=== PATIENT | female | born 1980 ===

== ENCOUNTER → 2020-04-14 | Outpatient (CLI) | payer SELFPAY ==
[~2020-04-14] MED LIST: COVID-19 VACCINE (PFIZER)/PF 30 MCG/0.3 ML VIAL IM ONE; EPINEPHRINE INJ/PF 1 MG/1 ML AMPULE IM PRN
== END ==
LOC: EMPHEALTH 07:01
PROVIDERS: ATTEND Internal Medicine
DX: Z23 Encounter for immunization (principal)
CPT/HCPCS: 91300

== ENCOUNTER → 2020-05-05 | Outpatient (CLI) | payer SELFPAY ==
--- OUTSIDE RECORDS SUMMARY | 2020-05-05 06:47 | XMS REPORT ---
:1980 Author Organization [facility] Address [facility] [address] [place] [address] Care Team Providers Name Role Phone ELMA MCCALLUM Primary Care Physician Unavailable Hilary Attending Clinician Unavailable ADRI MCCALLUM Attending Clinician Unavailable MARIETTA MAYO Attending Clinician Unavailable MASOOD DE LA FUENTE Attending Clinician Unavailable Anika Attending Clinician Unavailable Tomasa Rahman Attending Clinician Unavailable Tushar Camargo Attending Clinician Unavailable Osvaldo Matthews Attending Clinician Unavailable Cary Segovia (ANP) Attending Clinician Unavailable MARIETTA MAYO Admitting Clinician Unavailable Tomasa Rahman Admitting Clinician Unavailable Allergies, Adverse Reactions, Alerts Allergy Allergy Status Severity Reaction(s) Onset Inactive Treating C omments Name Type Date Date Clinician CIPROFLOXAC Drug Active Unknown 2019-04 IN HCL allergy 05-22 00:00: 00 CIPROFLOXAC Drug Active Unknown 2019-04 IN allergy 05-22 00:00: 00 MORPHINE Drug Active Unknown 2019-04 allergy 05-22 00:00: 00 Morphine Propensity Active to adverse -22 reactions 00:00: 00 Ciprofloxac Propensity Active Low Rash in to adverse -22 reactions 00:00: 00 Nsaids Propensity Inactive Low Nausea And (Non-Steroi to adverse Vomiting - patrick reactions 00:00: Anti-Inflam 00 matory Drug) Nsaids Propensity Active Low Nausea And (Non-Steroi to adverse Vomiting - ptarick reactions 00:00: Anti-Inflam 00 matory Drug) ciprofloxac Allergy Active Vomiting in ciprofloxac Allergy Active Vomiting in HCl morphine Allergy Active Vomiting NSAIDS Allergy Active No Known (Non-Steroi Reaction patrick Anti-Inflam ma Medications Ordered Filled Start Stop Current Ordering Indication Dosage Frequency Signature Comments Components Medication Medication Date Date Medication? Clinician (SIG) Name Name amoxicillin 2018-04 Yes Take 1 Take 1 (AMOXIL) 2-30 tablet by tablet by 875 MG 00:00: mouth mouth tablet 00 every 12 every 12 hours hours labetalol 2018-04 Yes Take 1 Take 1 (NORMODYNE) 2-02 tablet by tabl et by 100 MG 00:00: mouth mouth tablet 00 twice twice daily daily omeprazole 2018-04 Yes Take 1 Take 1 (PRILOSEC) 2-02 capsule by caps ule 20 MG 00:00: mouth once by mouth capsule 00 daily once daily ondansetron Yes Place [address] 1 (ZOFRAN-ODT 9-10 tablet (8 tabl et (8 ) 8 MG 00:00: mg) on the mg) on disintegrat 00 tongue and the ing tablet allow to tongue dissolve 2 and allow times per to day as dissolve needed for 2 times nausea per day as needed for nausea SENNOSIDES Yes 3{tbl} Take 3 Take 3 (SENNA-C 1-28 tablets by tablet s ORAL) 11:46: mouth Two by mouth 15 (2) times Two (2) a day. times a day. multivitami Yes 1{tbl} Take 1 Take 1 n 1-28 tablet by tablet by (TAB-A-LARS 00:00: mouth mouth /THERAGRAN) 00 daily. daily. per tablet omega-3 2019- No 1{capsu Take 1 Take 1 fatty -28 -27 le} capsule by capsule acids-fish 00:00: 23:59 mouth by mouth oil (FISH 00 :00 daily. daily. OIL) 360-1,200 mg cap ondansetron 2020- No 4mg TAKE 1 TAKE 1 (ZOFRAN) 4 05-08 TABLET BY TABLE T BY MG tablet 00:00: 23:59 MOUTH MOUTH 00 :00 EVERY 6 EVERY 6 HOURS HOURS NEEDED FOR NEEDED NAUSEA FOR NAUSEA dicyclomine 2020- No 20mg TAKE 1 TAKE 1 (BENTYL) 20 05-08 TABLET BY TABL ET BY mg tablet 00:00: 23:59 MOUTH MOUTH 00 :00 EVERY 6 EVERY 6 HOURS HOURS NEEDED FOR NEEDED SPASM FOR SPASM phentermine Yes 15mg Take 15 mg Ta ke 15 15 MG 1-23 by mouth mg by capsule 12:08: every mouth 08 morning. every morning. vilazodone Yes 20mg Take 20 mg Neeraj e 20 (VIIBRYD) 1-22 by mouth mg by 20 mg 20:55: daily. mouth tablet 35 Take with daily. food Take with food ondansetron 2019- No TAKE 1 TAKE 1 (ZOFRAN-ODT 05-06 TABLET (4 TABL ET (4 ) 4 MG 00:00: 23:59 MG TOTAL) MG TOTAL ) disintegrat 00 :00 BY MOUTH BY MO UTH ing tablet EVERY EVERY EIGHT (8) EIGHT (8) HOURS HOURS NEEDED FOR NEEDED NAUSEA FOR FOR UP TO 7 NAUSEA DAYS FOR UP TO 7 DAYS ondansetron 2019- No 4MG Take 1 Take 1 (ZOFRAN-ODT 05-06 tablet (4 tabl et (4 ) 4 MG 00:00: 23:59 mg total) mg total ) disintegrat 00 :00 by mouth by mo uth ing tablet every every eight (8) eight (8) hours as hours as needed for needed nausea. for for up to nausea. 7 days for up to 7 days vilazodone 2017-04- No TAKE 1 TAKE 1 (VIIBRYD) 2-12 12-12 TABLET (20 TABLE T 20 mg 00:00: 23:59 MG) BY (20 MG) tablet 00 :00 MOUTH BY MOUTH DAILY WITH DAILY FOOD WITH FOOD labetalol 2017-04 No 100mg TAKE 1 TAKE 1 (NORMODYNE) 1-28 TABLET BY TABL ET BY 100 MG 00:00: MOUTH 2 MOUTH 2 tablet 00 TIMES A TIMES A DAY DAY labetalol 2019- No TAKE 1 TAKE 1 (NORMODYNE) 8-17 - TABLET BY TABL ET BY 100 MG 00:00: 00:00 MOUTH 2 MOUTH 2 tablet 00 :00 TIMES A TIMES A DAY DAY labetalol No 100mg TAKE 1 TAKE 1 (NORMODYNE) 8-16 TABLET BY TABL ET BY 100 MG 00:00: MOUTH 2 MOUTH 2 tablet 00 TIMES A TIMES A DAY DAY labetalol 2016-04 Yes 100mg Take 1 Take 1 (NORMODYNE) 1-15 tablet tablet 100 MG 00:00: (100 mg (100 mg tablet 00 total) by total) by mouth Two mouth Two (2) times (2) times a day. a day. medroxyPROG 2016-04 Yes 1{tbl} Take 1 Take 1 ESTERone 1-10 tablet by tablet by (PROVERA) 00:00: mouth mouth 10 MG 00 daily. daily. tablet ferrous Yes 1{tbl} Take 1 Take 1 sulfate 325 9-22 tablet by tabl et by mg (65 mg 12:14: mouth mouth iron) CpER 26 daily. daily. b complex Yes 1{tbl} Take 1 Take 1 vitamins 9-22 tablet by tablet by tablet 12:14: mouth mouth 26 daily. daily. SENNOSIDES No 3{tbl} Take 3 Take 3 (SENNA-C 9-22 tablets by tablet s ORAL) 12:14: mouth Two by mouth 26 (2) times Two (2) a day. times a day. omega-3 2019- No 1{capsu Take 1 Take 1 fatty 01-04 le} capsule by capsule acids-fish 12:14: 00:00 mouth by mouth oil (FISH 26 :00 daily. daily. OIL) 360-1,200 mg cap multivitami 2019- No 1{tbl} Take 1 Take 1 n 01-04 tablet by tablet by (TAB-A-LARS 12:14: 00:00 mouth mouth /THERAGRAN) 26 :00 daily. daily. per tablet Acetaminoph Yes General 650MG EVERY FOUR en -26 Acute Care HOURS 00:00: Hospital NEEDED PRN 00 For Pain. Oxycodone 2016- Yes General 1TAB EVERY FOUR Hcl/Acetami 4-26 Acute Care HOURS nophen 00:00: Hospital NEEDED PRN 00 For PAIN. Ferrous 2016- Yes General 1TAB EVERY DAY Sulfate 4-24 Acute Care 00:00: Hospital 00 Labetalol 2016- Yes General 100MG TWO TIMES Hcl 4-05 Acute Care DAILY 00:00: Hospital 00 Fa/Mv,Ca,Ir 2017- Yes General 2TAB EVERY on,Min/Lyco 4-05 Acute Care NIGHT AT [facility] 00:00: Hospital BEDTIME 2014-04 2017- No General 2500MCG EVERY DAY 0-12 04-05 Acute Care 00:00: 11:31 Hospital 00 :00 Hydrocodone 2014-04- No General 1TAB EVERY FOUR Bit/Acetami 07-18 Acute Care HOURS nophen 00:00: 11:30 Hospital NEEDED PRN 00 :00 For Pain Oxycodone 2014- No General 1TAB EVERY SIX Hcl/Acetami 10-22 Acute Care HOURS nophen 00:00: 11:10 Hospital NEEDED PRN 00 :00 For PAIN. Ferrous 2014- No General 324MG EVERY DAY Sulfate 10-22 Acute Care 00:00: 11:10 Hospital 00 :00 Folic Acid 2014- No General .4MG EVERY DAY 10-20 Acute Care 00:00: 11:09 Hospital 00 :00 Ranitidine 2014- No General 150MG EVERY DAY Hcl 10-20 Acute Care 00:00: 11:10 Hospital 00 :00 Calcium Yes General 1TAB TWO TIMES Carbonate/V 04-23 Acute Care DAILY itamin D3 00:00: Hospital 00 Sennosides Yes General 3TAB TWO TIMES 04-23 Acute Care DAILY 00:00: Hospital 00 Cyanocobala Yes General 2500MCG MOWEFR min 04-23 Acute Care 00:00: Hospital 00 Fish Oil 2017- No General 1200MG EVERY DAY 04-23 Acute Care 00:00: 11:30 Hospital 00 :00 Labetalol 2016- No General 100MG TWO TIMES Hcl 04-23 Acute Care DAILY 00:00: 14:54 Hospital 00 :00 Multivitami 2016- No General 2TAB EVERY ns 04-23 Acute Care NIGHT AT 00:00: 14:54 Hospital BEDTIME 00 :00 Problems Condition Condition Condition Status Onset Resolution Last Treatin g Comments Name Details Category Date Date Treatment Clinician Date Calculus of Calculus of Condition Active 2018-05-07 Overview: gallbladder gallbladder 05-07 10:14:40 Added with acute with acute 00:00: au tomatic cholecystit cholecystit 00 ally from is without is without re quest obstruction obstruction for surgery [id number] Well woman Well woman Condition Active 2017-1 2017-02-27 Last exam (no exam (no 1-15 15:14:51 Asses smen gynecologic gynecologic 00:00: t & Plan: al exam) al exam) 00 Annual wellness exam bernarda n patient is currentl y preventa t [facility] needs to receive flu vaccine. Patient' s to retur n to clini c in one year's time for complete physical exam lab s to be done a week prior to visit. Essential Essential Condition Active 2016-2017-01-16 Last (primary) (primary) 0-04 15:21:21 Ass essmen hypertensio hypertensio 00:00: t & Plan: n n 00 Hyperten s ion well controll e d patien t is to continue labetalo l as prescrib e d salt restrict i on and exercise lose weight Finding Active delivery delivery delivered delivered S/P S/P Finding Active Procedures Procedure Date / Time Performed Performing Clinician [facility] Add 2020-03-21 15:30:00 Supplies PREV VISIT EST AGE 40-64 2020-03-21 15:30:00 COMPREHENSIVE METABOLIC PANEL 2019-04-13 15:20:00 Tammi Mccallum Adri LIPID PANEL 2019-04-13 15:20:00 Elma Mccallum Adri VITAMIN B12 2019-04-13 15:20:00 Elma Mccallum Adri TSH 2019-04-13 15:20:00 Elma Mccallum Adri CBC 2019-04-13 15:20:00 Elma Mccallum Adri MAMMO DIGITAL SCREENING W ROMMEL 2019-03-23 17:39:23 Elma Mccallum Adri BILATERAL W CAD AEROBIC CULTURE 2018-05-12 08:45:00 Hilary Mayo ECG 12-LEAD 2018-05-12 06:38:46 Hilary Mayo , URINE 2018-05-12 06:18:00 Hilary Mayo COMPREHENSIVE METABOLIC PANEL 2018-05-06 20:45:00 Ana Maria De La Fuente HCG, SERUM, QUALITATIVE 2018-05-06 20:45:00 Ana Maria De La Fuente CBC W/ AUTO DIFF 2018-05-06 20:45:00 Ana Maria De La Fuente URINALYSIS 2018-05-06 20:36:00 Ana Maria De La Fuente COMPREHENSIVE METABOLIC PANEL 2018-03-17 06:47:00 Provider, Exte rnal Ordering LIPID PANEL 2018-03-17 06:47:00 Provider, External Ordering VITAMIN B12 2018-03-17 06:47:00 Provider, External Ordering T4, FREE 2018-03-17 06:47:00 Provider, External Ordering TSH 2018-03-17 06:47:00 Provider, External Ordering CBC 2018-03-17 06:47:00 Provider, External Ordering COMPREHENSIVE METABOLIC PANEL 2017-03-01 07:17:00 Cuddapah, Deep ak LIPID PANEL 2017-03-01 07:17:00 Cuddapah, Janusz IRON 2017-03-01 07:17:00 Cuddapah, Janusz TSH 2017-03-01 07:17:00 Cuddapah, Janusz CBC W/ DIFFERENTIAL 2017-03-01 07:17:00 Cuddapah, Janusz URINALYSIS 2017-03-01 07:17:00 Cuddapah, Janusz VITAMIN D 25 HYDROXY 2017-03-01 07:17:00 Cuddapah, Janusz CBC 2016-08-07 05:17:00 Jeremy Rahman CBC 2016-08-06 05:49:00 Jeremy Rahman RPR 2016-08-06 05:49:00 Jeremy Rahman URINALYSIS 2016-07-18 11:22:00 Jeremy Rahman URINE MICROSCOPIC 2016-07-18 11:22:00 Jeremy Rahman HEMOGLOBIN A1C 2016-05-24 15:25:00 Milton Matthews HEPATITIS B SURFACE ANTIGEN 2016-01-04 07:36:00 Rm Segoviao RPR 2016-01-04 07:36:00 Mary Segovia RUBELLA ANTIBODY, IGG 2016-01-04 07:36:00 Mary Segoviao HIV ANTIGEN/ANTIBODY COMBO 2016-01-04 07:36:00 Pinky Segovia Formo COMPREHENSIVE METABOLIC PANEL 2015-12-30 07:30:00 Cuddapah, Deep ak LIPID PANEL 2015-12-30 07:30:00 Cuddapah, Janusz VITAMIN B12 2015-12-30 07:30:00 Cuddapah, Janusz FERRITIN 2015-12-30 07:30:00 Cuddapah, Janusz FOLATE 2015-12-30 07:30:00 Cuddapah, Janusz CBC W/ DIFFERENTIAL 2015-12-30 07:30:00 Cuddapah, Janusz URINALYSIS 2015-12-30 07:30:00 Cuddapah, Janusz VITAMIN D 25 HYDROXY 2015-12-30 07:30:00 Cuddapah, Janusz THYROID FUNCTION CASCADE 2015-12-30 07:30:00 Cuddapah, Janusz URINE MICROSCOPIC 2015-12-30 07:30:00 Cuddapah, Janusz INFLUENZA A AND B ANTIGEN 2015-03-24 10:50:00 Aleyda Fu COMPREHENSIVE METABOLIC PANEL 2014-11-24 09:37:00 Cuddapah, Deep ak LIPID PANEL 2014-11-24 09:37:00 Cuddapah, Janusz VITAMIN B12 2014-11-24 09:37:00 Cuddapah, Janusz FERRITIN 2014-11-24 09:37:00 Cuddapah, Janusz TSH 2014-11-24 09:37:00 Cuddapah, Janusz CBC W/ DIFFERENTIAL 2014-11-24 09:37:00 Cuddapah, Janusz URINALYSIS 2014-11-24 09:37:00 Cuddapah, Janusz VITAMIN D 25 HYDROXY 2014-11-24 09:37:00 Cuddapah, Janusz URINE MICROSCOPIC 2014-11-24 09:37:00 Cuddapah, Janusz CBC 2014-10-21 04:23:00 Moustapha Camargo MATURATION TIME 2014-10-21 04:23:00 Moustapha Camargo Results Test Description Test Time Test Comments Text Results Atomic Results Result Comments #[id number] 2019-04-13 10:20:00 Test Item Value Reference Range Comments WBC (test code = WBC) 8.3 10*9/L 4.5- 13.0 10*9/L RBC (test code = RBC) 4.24 10*12/L 3.00- 5.20 10*12/L HGB (test code = HGB) 12.8 g/dL 11.5- 15.3 g/dL HCT (test code = HCT) 36.6 % 34.0- 46.0 % MCV (test code = MCV) 86.4 fL 78.0- 100.0 fL MCH (test code = MCH) 30.1 pg 25.0- 35.0 pg MCHC (test code = MCHC) 34.9 g/dL 31.0- 36.0 g/dL RDW (test code = RDW) 12.4 % 11.0- 15.0 % MPV (test code = MPV) 8.2 fL 6.0- 9.5 fL Platelet (test code = Platelet) 217 10*9/L 150- 450 10*9/L #[id number] 10:20:00 Test Item Value Reference Range Comments Sodium (test code = Sodium) 140 mmol/L 136- 145 mmol/L Potassium (test code = Potassium) 3.9 mmol/L 3.5- 5.1 mmol/ L Chloride (test code = Chloride) 105 mmol/L 98- 107 mmol/L CO2 (test code = CO2) 28.0 mmol/L 20.0- 31.0 mmol/L Anion Gap (test code = Anion Gap) 7 mmol/L 5- 15 mmol/L BUN (test code = BUN) 11 mg/dL 10- 23 mg/dL Creatinine (test code = Creatinine) 0.49 mg/dL 0.50- 0.80 m g/dL BUN/Creatinine Ratio (test code = 22 15-24 BUN/Creatinine Ratio) EGFR CKD-EPI Non-, Female >90 >=60 m L/min/1.73m2 (test code = EGFR CKD-EPI Non-, Female) EGFR CKD-EPI , Female (test >90 >=60 mL/min/1.73m2 code = EGFR CKD-EPI , Female) Glucose (test code = Glucose) 101 mg/dL 70- 99 mg/dL Calcium (test code = Calcium) 9.1 mg/dL 8.3- 10.6 mg/dL Albumin (test code = Albumin) 4.2 g/dL 3.4- 5.0 g/dL Total Protein (test code = Total Protein) 6.8 g/dL 6.1- 8 .0 g/dL Total Bilirubin (test code = Total Bilirubin) 0.5 mg/dL 0. 3- 1.2 mg/dL AST (test code = AST) 17 U/L 13- 40 U/L ALT (test code = ALT) 22 U/L 7- 40 U/L Alkaline Phosphatase (test code = Alkaline 67 U/L 46- 1 16 U/L Phosphatase) Globulin, Total (test code = Globulin, Total) 2.6 g/dL 2. 3- 3.5 g/dL Osmolality Calculated (test code = Osmolality 279 mOsm/kg 26 6- 308 mOsm/kg Calculated) Albumin/Globulin Ratio (test code = 1.6 1.1-1.8 Albumin/Globulin Ratio) #[id number] 10:20:00 Test Item Value Reference Range Comments Triglycerides (test code = Triglycerides) 161 mg/dL 35- 16 0 mg/dL Cholesterol (test code = Cholesterol) 187 mg/dL 140- 200 m g/dL HDL (test code = HDL) 47 mg/dL 40- 95 mg/dL VLDL Cholesterol Alissa (test code = VLDL 32.2 mg/dL 5- 40 mg/ dL Cholesterol Alissa) Chol/HDL Ratio (test code = Chol/HDL Ratio) 4.0 Non-HDL Cholesterol (test code = Non-HDL 140 mg/dL Cholesterol) FASTING (test code = FASTING) Unknown LDL Direct (test code = LDL Direct) 126.0 mg/dL 0.0- 129.0 m g/dL #[id number] 10:20:00 Test Item Value Reference Range Comments TSH (test code = TSH) 0.835 uIU/mL 0.550- 4.780 uIU/mL #[id number] 10:20:00 Test Item Value Reference Range Comments Vitamin B-12 (test code = Vitamin B-12) 1790 pg/ml 180- 914 pg/ml #[id number] 14:28:42Mammo Digital Screening W Rommel Bilateral W CAD (03/23/2019 12:39 PM EST)SpecimenImpressionsPerformedAtNo mammographic evidence of malignancy. Annual screening mammography is recommended unless clinically warranted sooner. Final Assessment/Recommendations:1. BI-RADS Category: 2-[id number] : Benign. Routine Mammography Screening. 2. Recommendation Laterality: Bilateral Dictated on: 03/23/2019 2:28 PM ESTDictated by: Kwabena Lewis MD Approved and Electronically Signed by: Kwabena Lewis MDApproved on: 03/23/2019 2:35 PM EST [facility] RADNarrativePerformed AtPROCEDURE: BILATERAL DIGITAL SCREENING MAMMOGRAM WITH 3D TOMOSYNTHESIS WITH CAD COMPARISON: None available. Baseline study. CLINICAL INDICATION: Routine screening mammogram. TECHNIQUE: Bilateral 2D Digital Mammographic and 3D Digital Tomosynthesis views were obtained in the implant displaced CC and MLO projections. Additional C-view synthesized 2-D images were generated. Additional craniocaudal and MLO projections of the rajiv asts were obtained. BREAST DENSITY: c - The breast parenchyma is heterogeneously dense, which may obscure small masses. FINDINGS: There is no suspicious mass, suspicious microcalcification, or focus of architectural distortion in either breast. Bilateral submuscular breast implants are present which limit sensitivity of mammography. Bilateral axillary benign-appearing calcifications are noted. Images from this examination were processed with the [employer] ImageCheSighterer Computer Aided Detection system toaid in lesion detection. [facility] RADProcedure NoteInterface, Rad Results In - 03/23/2019 2:39 PM ESTPROCEDURE: BILATERAL DIGITAL SCREENING MAMMOGRAM WITH 3D TOMOSYNTHESIS WITH CAD COMPARISON: None available. Baseline study. CLINICAL INDICATION: Routine screening mammogram. TECHNIQUE: Bilateral 2D Digital Mammographic and 3D Digital Tomosynthesis views were obtained in the implant displaced CC and MLO projections. Additional C-view synthesized 2-D images were generated. Additional craniocaudal and MLO pro jections of the breasts were obtained. BREAST DENSITY: c - The breast parenchyma is heterogeneously dense, which may obscure small masses. FINDINGS: There is no suspicious mass, suspicious microcalcification, or focus of architectural distortion in either breast. Bilateral submuscular breast implants are present which limit sensitivity of mammography. Bilateral axillary benign-appearing calcifications are noted. Images from this examination were processed with the Micropelt ImageMoser Baer Solarer Computer Aided Detection system to aid in lesion detection. IMPRESSION: No mammographic evidence of malignancy. Annual screening mammography is recommended unless clinically warranted sooner. Final Assessment/Recommendations: 1. BI-RADS Category: 2-[id number] : Benign. Routine Mammography Screening. 2. Recommendation Laterality: Bilateral Dictated on: 03/23/2019 2:28 PM EST Dictated by: Kwabena Lewis MD Approved and Electronically Signed by: Kwabena Lewis MD Approved on: 03/23/2019 2:35 PM JUAN ANTONIO [facility] HealthPerforming OrganizationAddressCity/State/ZipcodePhone NumberAR[facility] RAD[facility] SCE[address], [place] [address]VAD 12 [id number] 06:38:46ECG 12 Lead (05/12/2018 6:38 AM) Performing Organization Address City/State/Zipcode Phone Number [facility] [address] [facility]. [place], [place] [address] Qualitative, Urine (Pre-op)2018-05-12 06:18:00 Test Item Value Reference Range Comments Test, Urine (test code = Test, Negative Negative Urine) Comprehensive Metabolic [id number] 20:45:00 Test Item Value Reference Range Comments Sodium (test code = Sodium) 142 mmol/L 135- 153 mmol/L Potassium (test code = Potassium) 3.9 mmol/L 3.5- 5.3 mmol/ L Chloride (test code = Chloride) 104 mmol/L 96- 112 mmol/L CO2 (test code = CO2) 28.0 mmol/L 23.0- 33.0 mmol/L BUN (test code = BUN) 14 mg/dL 7- 22 mg/dL Creatinine (test code = Creatinine) 0.70 mg/dL 0.50- 1.20 m g/dL BUN/Creatinine Ratio (test code = 20 15-24 BUN/Creatinine Ratio) EGFR MDRD Non Af Amer (test code = EGFR 93 mL/min/1.73m2 >=60 mL /min/1.73m2 MDRD Non Af Amer) EGFR MDRD Af Amer (test code = EGFR 113 mL/min/1.73m2 >=60 mL/mi n/1.73m2 MDRD Af Amer) Anion Gap (test code = Anion Gap) 10 mmol/L 5- 15 mmol/L Glucose (test code = Glucose) 103 mg/dL 70- 110 mg/dL Calcium (test code = Calcium) 9.7 mg/dL 8.7- 10.7 mg/dL Albumin (test code = Albumin) 4.4 g/dL 3.5- 5.2 g/dL Total Protein (test code = Total 7.6 g/dL 6.1- 8.0 g/dL Protein) Total Bilirubin (test code = Total 0.5 mg/dL 0.3- 1.2 mg/d L Bilirubin) AST (test code = AST) 23 U/L 12- 45 U/L ALT (test code = ALT) 22 U/L 10- 35 U/L Alkaline Phosphatase (test code = 49 U/L 37- 107 U/L Alkaline Phosphatase) Globulin, Total (test code = Globulin, 3.2 g/dL 2.3- 3.5 g/dL Total) OSMOCALC (test code = OSMOCALC) 284 mOsm/kg 266- 308 mOsm/kg ALBGLOBRAT (test code = ALBGLOBRAT) 1.4 1.1-1.8 hCG, serum, [id number] 20:45:00 Test Item Value Reference Range Comments hCG Qual (test code = hCG Qual) Negative Negative CBC w/ [id number] 20:45:00 Test Item Value Reference Range Comments WBC (test code = WBC) 7.0 10*9/L 4.5- 13.0 10*9/L RBC (test code = RBC) 4.71 10*12/L 3.00- 5.20 10*12/L HGB (test code = HGB) 13.7 g/dL 11.5- 15.3 g/dL HCT (test code = HCT) 40.5 % 34.0- 46.0 % MCV (test code = MCV) 85.9 fL 78.0- 100.0 fL MCH (test code = MCH) 29.0 pg 25.0- 35.0 pg MCHC (test code = MCHC) 33.7 g/dL 31.0- 36.0 g/dL RDW (test code = RDW) 13.3 % 11.0- 15.0 % MPV (test code = MPV) 8.6 fL 6.0- 9.5 fL Platelet (test code = Platelet) 245 10*9/L 150- 450 10*9/L Neutrophils % (test code = Neutrophils %) 56.2 % Lymphocytes % (test code = Lymphocytes %) 33.1 % Monocytes % (test code = Monocytes %) 6.5 % Eosinophils % (test code = Eosinophils %) 3.0 % Basophils % (test code = Basophils %) 1.2 % Absolute Neutrophils (test code = Absolute 3.9 10*9/L 1.8- 8.0 10*9/L Neutrophils) Absolute Lymphocytes (test code = Absolute 2.3 10*9/L 1.2- 6.5 10*9/L Lymphocytes) Absolute Monocytes (test code = Absolute 0.5 10*9/L 0.0- 0. 9 10*9/L Monocytes) Absolute Eosinophils (test code = Absolute 0.2 10*9/L 0.0- 0.6 10*9/L Eosinophils) Absolute Basophils (test code = Absolute 0.1 10*9/L 0.0- 0. 2 10*9/L Basophils) [id number] 20:36:00 Test Item Value Reference Range Comments Color, UA (test code = Color, UA) Yellow Yellow, Colorl ess Clarity, UA (test code = Clarity, UA) Clear Clear Specific [place], UA (test code = Specific 1.018 1.005 -1.030 [place], UA) pH, UA (test code = pH, UA) 6.0 5.0-8.0 Leukocyte Esterase, UA (test code = Leukocyte Negative Ne gative Esterase, UA) Nitrite, UA (test code = Nitrite, UA) Negative Negative Protein, UA (test code = Protein, UA) Negative Negative Glucose, UA (test code = Glucose, UA) Negative Negative Ketones, UA (test code = Ketones, UA) Negative Negative Urobilinogen, UA (test code = Urobilinogen, UA) 0.2 mg/dL 0.2- 1.0 mg/dL Bilirubin, UA (test code = Bilirubin, UA) Negative Negati ve Blood, UA (test code = Blood, UA) Negative Negative RBC, UA (test code = RBC, UA) <1 0- 5 /HPF WBC, UA (test code = WBC, UA) 1 /HPF 0- 5 /HPF Squam Epithel, UA (test code = Squam Epithel, 1 /HPF 0- 5 /HPF UA) [id number] 06:47:00 Test Item Value Reference Range Comments WBC (test code = WBC) 6.1 10*9/L 4.5- 13.0 10*9/L RBC (test code = RBC) 4.28 10*12/L 3.00- 5.20 10*12/L HGB (test code = HGB) 12.5 g/dL 11.5- 15.3 g/dL HCT (test code = HCT) 36.1 % 34.0- 46.0 % MCV (test code = MCV) 84.4 fL 78.0- 100.0 fL MCH (test code = MCH) 29.2 pg 25.0- 35.0 pg MCHC (test code = MCHC) 34.6 g/dL 31.0- 36.0 g/dL RDW (test code = RDW) 13.2 % 11.0- 15.0 % MPV (test code = MPV) 8.2 fL 6.0- 9.5 fL Platelet (test code = Platelet) 273 10*9/L 150- 450 10*9/L Comprehensive Metabolic [id number] 06:47:00 Test Item Value Reference Range Comments Sodium (test code = Sodium) 137 mmol/L 135- 153 mmol/L Potassium (test code = Potassium) 4.0 mmol/L 3.5- 5.3 mmol/ L Chloride (test code = Chloride) 103 mmol/L 96- 112 mmol/L CO2 (test code = CO2) 27.0 mmol/L 23.0- 33.0 mmol/L BUN (test code = BUN) 11 mg/dL 7- 22 mg/dL Creatinine (test code = Creatinine) 0.60 mg/dL 0.50- 1.20 m g/dL BUN/Creatinine Ratio (test code = 18 15-24 BUN/Creatinine Ratio) EGFR MDRD Non Af Amer (test code = EGFR 111 mL/min/1.73m2 >=60 m L/min/1.73m2 MDRD Non Af Amer) EGFR MDRD Af Amer (test code = EGFR 135 mL/min/1.73m2 >=60 mL/mi n/1.73m2 MDRD Af Amer) Anion Gap (test code = Anion Gap) 7 mmol/L 5- 15 mmol/L Glucose (test code = Glucose) 99 mg/dL 70- 110 mg/dL Calcium (test code = Calcium) 8.8 mg/dL 8.7- 10.7 mg/dL Albumin (test code = Albumin) 3.8 g/dL 3.5- 5.2 g/dL Total Protein (test code = Total 6.7 g/dL 6.1- 8.0 g/dL Protein) Total Bilirubin (test code = Total 0.7 mg/dL 0.3- 1.2 mg/d L Bilirubin) AST (test code = AST) 20 U/L 12- 45 U/L ALT (test code = ALT) 25 U/L 10- 35 U/L Alkaline Phosphatase (test code = 44 U/L 37- 107 U/L Alkaline Phosphatase) Globulin, Total (test code = Globulin, 2.9 g/dL 2.3- 3.5 g/dL Total) OSMOCALC (test code = OSMOCALC) 273 mOsm/kg 266- 308 mOsm/kg ALBGLOBRAT (test code = ALBGLOBRAT) 1.3 1.1-1.8 Lipid [id number] 06:47:00 Test Item Value Reference Range Comments Triglycerides (test code = Triglycerides) 83 mg/dL 35- 16 0 mg/dL Cholesterol (test code = Cholesterol) 163 mg/dL 140- 200 m g/dL HDL (test code = HDL) 52 mg/dL 35- 80 mg/dL VLDL Cholesterol Alissa (test code = VLDL 16.6 mg/dL 5- 40 mg/ dL Cholesterol Alissa) Chol/HDL Ratio (test code = Chol/HDL Ratio) 3.1 Non-HDL Cholesterol (test code = Non-HDL 111 mg/dL Cholesterol) FASTING (test code = FASTING) Yes LDL Direct (test code = LDL Direct) 97.0 mg/dL 0.0- 129.0 m g/dL [id number] 06:47:00 Test Item Value Reference Range Comments TSH (test code = TSH) 1.349 uIU/mL 0.340- 5.600 uIU/mL T4, [id number] 06:47:00 Test Item Value Reference Range Comments Free T4 (test code = Free T4) 0.85 ng/dL 0.58- 1.64 ng/dL Vitamin B12 [id number] 06:47:00 Test Item Value Reference Range Comments Vitamin B-12 (test code = Vitamin B-12) >1500 180- 914 pg/ml Comprehensive Metabolic [id number] 07:17:00 Test Item Value Reference Range Comments CO2 (test code = CO2) 27 mmol/L 23- 33 mmol/L eGFR (test code = eGFR) >60 >60 BUN/Creatinine Ratio (test code = BUN/Creatinine 20 15-24 Ratio) Calcium (test code = Calcium) 9.1 mg/dL 8.7- 10.7 mg/dL Sodium (test code = Sodium) 135 mmol/L 135- 153 mmol/L Potassium (test code = Potassium) 3.9 mmol/L 3.5- 5.3 mmol/ L Chloride (test code = Chloride) 102 mmol/L 96- 112 mmol/L BUN (test code = BUN) 12 mg/dL 7- 22 mg/dL Globulin, Total (test code = Globulin, Total) 3 g/dL 2. 3- 3.5 g/dL Osmolality Calc (test code = Osmolality Calc) 270 26 6-308 Anion Gap (test code = Anion Gap) 6 mmol/L 5- 15 mmol/L Total Protein (test code = Total Protein) 7.0 g/dL 6.1- 8 .0 g/dL Albumin (test code = Albumin) 4.0 g/dL 3.5- 5.2 g/dL ALBUMIN/GLOBULIN RATIO (test code = 1.3 1.1-1.8 ALBUMIN/GLOBULIN RATIO) ALT (test code = ALT) 25 U/L 10- 35 U/L Creatinine (test code = Creatinine) 0.6 mg/dL 0.5- 1.2 mg/ dL Glucose (test code = Glucose) 98 mg/dL 70- 110 mg/dL Total Bilirubin (test code = Total Bilirubin) 0.51 mg/dL 0. 30- 1.20 mg/dL AST (test code = AST) 19 U/L 12- 45 U/L Alkaline Phosphatase (test code = Alkaline 40 U/L 37- 1 07 U/L Phosphatase) Iron [id number] 07:17:00 Test Item Value Reference Range Comments Iron (test code = Iron) 79 ug/dL 28- 170 ug/dL Lipid [id number] 07:17:00 Test Item Value Reference Range Comments Cholesterol (test code = Cholesterol) 178 mg/dL 140- 200 m g/dL VLDL Cholesterol Alissa (test code = VLDL 13.2 mg/dL 5- 40 mg/ dL Cholesterol Alissa) Triglycerides (test code = Triglycerides) 66 mg/dL 35- 16 0 mg/dL LDL Calculated (test code = LDL Calculated) 112 mg/dL 0- 1 29 mg/dL HDL (test code = HDL) 60 mg/dL 35- 80 mg/dL [id number] 07:17:00 Test Item Value Reference Range Comments TSH (test code = TSH) 1.489 mIU/L 0.340- 5.600 mIU/L CBC w/ [id number] 07:17:00 Test Item Value Reference Range Comments RBC (test code = RBC) 4.34 M/mm3 3.00- 5.20 M/mm3 HCT (test code = HCT) 37.1 % 34.0- 46.0 % MCH (test code = MCH) 29.5 pg 25- 35 pg MPV (test code = MPV) 8.1 fL 6.0- 9.5 fL Neutrophils (Absolute) (test code = Neutrophils 2.7 K/mm3 1.8- 8.0 K/mm3 (Absolute)) Baso (Absolute) (test code = Baso (Absolute)) 0.1 K/mm3 0. 0- 0.2 K/mm3 WBC (test code = WBC) 5.2 K/mm3 4.5- 13.0 K/mm3 HGB (test code = HGB) 12.8 G/DL 11.5- 15.3 G/DL Lymphocytes % (test code = Lymphocytes %) 36.4 % 20.5- 51.1 % Eosinophils % (test code = Eosinophils %) 2.4 % 0- 10 % Basophils % (test code = Basophils %) 1.0 % 0- 3.0 % Eos (Absolute) (test code = Eos (Absolute)) 0.1 K/mm3 0- 0 .6 K/mm3 REPEAT AUTO DIFF (test code = REPEAT AUTO DIFF) YES MCV (test code = MCV) 85.7 fL 78- 100 fL MCHC (test code = MCHC) 34.4 g/dl 31- 36 g/dl Platelet (test code = Platelet) 190 K/mm3 150- 450 K/mm3 Neutrophils % (test code = Neutrophils %) 52.9 % 42.2- 75.2 % RDW (test code = RDW) 13.0 % 11.0- 15.0 % Monocytes % (test code = Monocytes %) 7.3 % 1.7- 9.3 % Lymphs (Absolute) (test code = Lymphs 1.9 K/mm3 1.2- 6.5 K /mm3 (Absolute)) Monocytes(Absolute) (test code = 0.4 K/mm3 0- 0.9 K/mm3 Monocytes(Absolute)) [id number] 07:17:00 Test Item Value Reference Range Comments Urine Source (test code = Urine Source) CLEAN CATCH Color, UA (test code = Color, UA) YELLOW YELLOW Urobilinogen, UA (test code = Urobilinogen, UA) 0.2 E.U./DL 0.2- 1.0 E.U./DL WBC, UA (test code = WBC, UA) 0-5 0- 5 #/HPF pH, UA (test code = pH, UA) 7.0 5.0-8.0 Protein, Ur (test code = Protein, Ur) NEGATIVE NEGATIVE M G/DL Blood, UA (test code = Blood, UA) NEGATIVE NEGATIVE MG/DL RBC, UA (test code = RBC, UA) 0-5 0- 5 #/HPF Specific [place], Urine (test code = Specific 1.019 1. 000-1.060 [place], Urine) Glucose, UA (test code = Glucose, UA) NEGATIVE NEGATIVE M G/DL Ketones, UA (test code = Ketones, UA) NEGATIVE NEGATIVE M G/DL Nitrite, UA (test code = Nitrite, UA) NEGATIVE NEGATIVE Leukocyte Esterase, UA (test code = Leukocyte NEGATIVE NE GATIVE WBC/UL Esterase, UA) Squam Epithel, UA (test code = Squam Epithel, 0-5 0- 5 #/HPF UA) Clarity, UA (test code = Clarity, UA) CLOUDY CLEAR Bilirubin, UA (test code = Bilirubin, UA) NEGATIVE NEGATI VE MG/DL Vitamin D 25 Hydroxy (25OH D2 + D3)2017-03-01 07:17:00 Test Item Value Reference Range Comments Vitamin D Total (25OH) (test code = Vitamin D Total 43 ng/mL 30- 100 ng/mL (25OH)) [id number] 05:17:00 Test Item Value Reference Range Comments RBC (test code = RBC) 3.63 M/mm3 3.00- 5.20 M/mm3 HCT (test code = HCT) 31.1 % 34.0- 46.0 % MCH (test code = MCH) 28.0 pg 25- 35 pg MPV (test code = MPV) 10.0 fL 6.0- 9.5 fL RDW (test code = RDW) 13.2 % 11.0- 15.0 % WBC (test code = WBC) 6.8 K/mm3 4.5- 13.0 K/mm3 HGB (test code = HGB) 10.2 G/DL 11.5- 15.3 G/DL MCV (test code = MCV) 85.8 fL 78- 100 fL MCHC (test code = MCHC) 32.7 g/dl 31- 36 g/dl Platelet (test code = Platelet) 97 K/mm3 150- 450 K/mm3 Lab - White Blood [id number] 05:17:00 Test Item Value Reference Range Comments White Blood Count (test code = 6.8 K/mm3 4.5-13.0 D elta: 5.7 on 08/06/1649 63171-1) Lab - Red Cell Distribution [id number] 05:17:00 Test Item Value Reference Range Comments Red Cell Distribution Width (test code = 788-0) 13.2 % 11.0-15.0 Lab - Red Blood [id number] 05:17:00 Test Item Value Reference Range Comments Red Blood Count (test code = 789-8) 3.63 M/mm3 3.00-5.20 Lab - Platelet [id number] 05:17:00 Test Item Value Reference Range Comments Platelet Count (test code = 97 K/mm3 150-450 Delt a: 114 on 08/06/1649 777-3) Lab - Mean Platelet [id number] 05:17:00 Test Item Value Reference Range Comments Mean Platelet Volume (test code = 79874-7) 10.0 fL 6.0-9 .5 Lab - Mean Corpuscular [id number] 05:17:00 Test Item Value Reference Range Comments Mean Corpuscular Volume (test code = 787-2) 85.8 fL 78-1 00 Lab - Mean Corpuscular Hemoglobin [id number] 05:17:00 Test Item Value Reference Range Comments Mean Corpuscular Hemoglobin Concent (test code = 32.7 g/dl 31-36 786-4) Lab - Mean Corpuscular [id number] 05:17:00 Test Item Value Reference Range Comments Mean Corpuscular Hemoglobin (test code = 785-6) 28.0 pg 25-35 Lab - [id number] 05:17:00 Test Item Value Reference Range Comments Hemoglobin (test code = 718-7) 10.2 G/DL 11.5-15.3 Lab - [id number] 05:17:00 Test Item Value Reference Range Comments Hematocrit (test code = Hematocrit) 31.1 % 34.0-46.0 [id number] 05:49:00 Test Item Value Reference Range Comments RBC (test code = RBC) 4.02 M/mm3 3.00- 5.20 M/mm3 HCT (test code = HCT) 33.8 % 34.0- 46.0 % MCH (test code = MCH) 28.0 pg 25- 35 pg MPV (test code = MPV) 9.5 fL 6.0- 9.5 fL MCV (test code = MCV) 84.1 fL 78- 100 fL MCHC (test code = MCHC) 33.3 g/dl 31- 36 g/dl Platelet (test code = Platelet) 114 K/mm3 150- 450 K/mm3 WBC (test code = WBC) 5.7 K/mm3 4.5- 13.0 K/mm3 HGB (test code = HGB) 11.3 G/DL 11.5- 15.3 G/DL RDW (test code = RDW) 13.3 % 11.0- 15.0 % [id number] 05:49:00 Test Item Value Reference Range Comments RPR (test code = RPR) NONREACTIVE NONREACTIVE Lab - Rapid Plasma [id number] 05:49:00 Test Item Value Reference Range Comments Rapid Plasma Reagin (test code = 12906-9) Nonreactive Type and [id number] 05:39:00 Test Item Value Reference Range Comments Previous history: (test code = YES Previous history:) SPECIMEN EXPIRATION DATE (test 08/09/16 @ 0539 code = SPECIMEN EXPIRATION DATE) Anti-A (test code = Anti-A) 4+ ANTI-D2 (test code = ANTI-D2) 4+ B CELL (test code = B CELL) 4+ Blood Type (test code = Blood AP Type) Anti-AB (test code = Anti-AB) 4+ Anti-B (test code = Anti-B) 0 Anti-D (test code = Anti-D) 4+ A1 Cell (test code = A1 Cell) 0 Antibody Screen (test code = NEGATIVE SCREENING CELLS I Antibody Screen) AHG 0 SCREENING CELLS II AHG 0 [id number] 11:22:00 Test Item Value Reference Range Comments pH, UA (test code = pH, UA) 7.5 5.0-8.0 Protein, Ur (test code = Protein, Ur) NEGATIVE NEGATIVE M G/DL Blood, UA (test code = Blood, UA) NEGATIVE NEGATIVE Urine Source (test code = Urine Source) CLEAN CATCH Color, UA (test code = Color, UA) DK YELLOW YELLOW Urobilinogen, UA (test code = Urobilinogen, UA) 1.0 E.U./DL 0.2- 1.0 E.U./DL Specific [place], Urine (test code = Specific 1.024 1. 005-1.030 [place], Urine) Glucose, UA (test code = Glucose, UA) NEGATIVE NEGATIVE M G/DL Ketones, UA (test code = Ketones, UA) NEGATIVE NEGATIVE M G/DL Nitrite, UA (test code = Nitrite, UA) NEGATIVE NEGATIVE Leukocyte Esterase, UA (test code = Leukocyte NEGATIVE NE GATIVE Esterase, UA) Clarity, UA (test code = Clarity, UA) CLEAR CLEAR Bilirubin, UA (test code = Bilirubin, UA) NEGATIVE NEGATI VE Urine [id number] 11:22:00 Test Item Value Reference Range Comments Renal Epithel, UA (test code = Renal Epithel, UA) 5-10 0- 5 #/HPF RBC, UA (test code = RBC, UA) 0-5 0-5 WBC, UA (test code = WBC, UA) 0-5 0- 5 #/HPF Bacteria, UA (test code = Bacteria, UA) 1+ TRACE BA C/HPF Lab - Urine [id number] 11:22:00 Test Item Value Reference Range Comments Urine pH (test code = 09733-8) 7.5 Lab - Urine [id number] 11:22:00 Test Item Value Reference Range Comments Urine WBC (test code = Urine WBC) 0-5 #/HPF Lab - Urine [id number] 11:22:00 Test Item Value Reference Range Comments Urine Urobilinogen (test code = 20612-6) 1.0 E.U./DL Lab - Urine Specific [id number] 11:22:00 Test Item Value Reference Range Comments Urine Specific [place] (test code = 99964-0) 1.024 Lab - Urine [id number] 11:22:00 Test Item Value Reference Range Comments Urine Source (test code = Urine Source) Clean catch Lab - Urine [id number] 11:22:00 Test Item Value Reference Range Comments Urine RBC (test code = 81672-3) 0-5 Lab - Urine [id number] 11:22:00 Test Item Value Reference Range Comments Urine Protein (test code = 54504-6) Negative MG/DL Lab - Urine [id number] 11:22:00 Test Item Value Reference Range Comments Urine Nitrite (test code = 71976-3) Negative Lab - Urine Leukocyte [id number] 11:22:00 Test Item Value Reference Range Comments Urine Leukocyte Esterase (test code = 51360-0) Negative Lab - Urine [id number] 11:22:00 Test Item Value Reference Range Comments Urine Ketones (test code = 60081-8) Negative MG/DL Lab - Urine Glucose (UA)2016-07-18 11:22:00 Test Item Value Reference Range Comments Urine Glucose (UA) (test code = 95867-3) Negative MG/DL Lab - Urine Epithelial [id number] 11:22:00 Test Item Value Reference Range Comments Urine Epithelial Cells (test code = 15291-2) 5-10 #/HPF Lab - Urine [id number] 11:22:00 Test Item Value Reference Range Comments Urine Color (test code = Dk yellow Due to color of the urine, 92457-0) urinalysis chemi alissa test may not be accurate. The color development on the reagent p ad may be masked, or a color react ion may be produced on the pad that could be interpreted visu ally and/or instrumentally a s a false positive. Lab - Urine [id number] 11:22:00 Test Item Value Reference Range Comments Urine Clarity (test code = 45900-7) Clear Lab - Urine [id number] 11:22:00 Test Item Value Reference Range Comments Urine Blood (test code = 53676-4) Negative Lab - Urine [id number] 11:22:00 Test Item Value Reference Range Comments Urine Bilirubin (test code = 73549-9) Negative Lab - Urine [id number] 11:22:00 Test Item Value Reference Range Comments Urine Bacteria (test code = 80886-2) 1+ ANGLE/HPF Hemoglobin [id number] 15:25:00 Test Item Value Reference Range Comments Hemoglobin A1C (test code = Hemoglobin A1C) 4.8 % <6.0 % Lab - Hemoglobin A1c [id number] 15:25:00 Test Item Value Reference Range Comments Hemoglobin A1c Percent (test 4.8 % Hem oglobin A1c% Reference Ranges: code = 52223-1) Hgb A1c% Degree of Glucose Control >8% Action Sugge sted 7-8% Good Control <7% Glyc emia Goal 6-7% Near Normal Glyc emia <6% Non-Diabetic Lev el NOTE: The results from thi s assay should be used in conjunct ion with other data (signs and symptoms, duration of diabetes, res ults of other tests, age of pa tient, clinical impressions, deg ree of adherence to therapy, etc. ). This test should not be us ed to diagnose diabetes mellitu s. The life span of red cells is shortened in patients with he molytic anemias, depending upon t he severity of the anemia. As a con sequence, specimens from s uch patients will exhibit DECREASE D glycohemoglobin levels compared to patients with expected red breanna l life span. The life span of red blood cells is lengthened in po lycythemia or post-splenectomy patients. Specimens from s uch patients may exhibit INCREASE D glycohemoglobin levels. Hepatitis B Surface [id number] 07:36:00 Test Item Value Reference Range Comments Hepatitis B Surface Ag (test code = Hepatitis B NON-REACTIVE NON-REACTIVE Surface Ag) HIV Antigen/Antibody [id number] 07:36:00 Test Item Value Reference Range Comments HIV Antigen/Antibody Combo (test code = HIV NON-REACTIVE NON- REACTIVE Antigen/Antibody Combo) Rubella Antibody, [id number] 07:36:00 Test Item Value Reference Range Comments Rubella IgG Scr (test code = Rubella IgG Scr) 3.18 () [id number] 07:36:00 Test Item Value Reference Range Comments RPR (test code = RPR) NONREACTIVE NONREACTIVE Lab - Rubella IgG [id number] 07:36:00 Test Item Value Reference Range Comments Rubella IgG Antibody (test 3.18 Value Interpretation ----- code = 5334-8) < or = 0.90 Not consistent with Immunity 0.91-1.09 Equivocal > or = 1.10 Consistent with Immunity Th e presence of rubella IgG anti body suggests immunization or past or current infection with r ubella virus. THIS TEST WAS PERFORM ED AT: [facility] [address] [facility] [address] TERRENCE MUIR MD Lab - Hepatitis B Surface [id number] 07:36:00 Test Item Value Reference Range Comments Hepatitis B Surface Antigen Non-reactive THIS TEST WAS PERFORMED AT: (test code = Hepatitis B [facility] Surface Antigen) [address] [place] [address] AL DANA MUIR MD Lab - HIV (1&2) Ag and Ab, 4th [id number] 07:36:00 Test Item Value Reference Range Comments HIV (1&2) Ag and Ab, 4th Non-reactive HIV-1 a ntigen and HIV-1/HIV-2 Generation (test code = antibodi es were not detected. 37958-7) There is no labo ratory evidence of HIV infection. PLEASE NOTE: Thi s information has been disclos ed to you from records whose co nfidentiality may be protected by state law. If your state re quires such protection, then the state law prohibits you fr om making any further disclosu re of the information with out the specific written consent of the person to wh om it pertains, or as otherwise permitted by law . A general authorization fo r the release of medical or ot her information is N OT sufficient for this purpose . For additional infor mation please refer to http://education .Quid.com/faq/FAQ1 06 (This link is being provide d for informational/ e ducational purposes only.) The performance of t his assay has not been clinica lly validated in patients less than 2 years old. THIS TEST W PERFORMED AT: [facility] [address] [address] AL DANA MUIR MD Lab - Blood Urea [id number] 07:30:00 Test Item Value Reference Range Comments Blood Urea Nitrogen (test code = 3094-0) 8 mg/dL 7-22 Lab - BUN/Creatinine [id number] 07:30:00 Test Item Value Reference Range Comments BUN/Creatinine Ratio (test code = 3097-3) 16 15-24 Lab - Aspartate Amino Transf (AST/SGOT)2015-12-30 07:30:00 Test Item Value Reference Range Comments Aspartate Amino Transf (AST/SGOT) (test code = 17 U/L 1 2-45 30147-5) Lab - Anion [id number] 07:30:00 Test Item Value Reference Range Comments Anion Gap (test code = 54885-0) 8 mmol/L 5-15 Lab - Alkaline [id number] 07:30:00 Test Item Value Reference Range Comments Alkaline Phosphatase (test code = 6768-6) 37 U/L 37-107 Lab - Albumin/Globulin [id number] 07:30:00 Test Item Value Reference Range Comments Albumin/Globulin Ratio (test code = 1759-0) 1.5 1.1- 1.8 Lab - [id number] 07:30:00 Test Item Value Reference Range Comments Albumin (test code = 1751-7) 4.1 g/dL 3.5-5.2 Lab - Alanine Aminotransferase (ALT/SGPT)2015-12-30 07:30:00 Test Item Value Reference Range Comments Alanine Aminotransferase (ALT/SGPT) (test code = 19 U/L 10-35 1743-4) Lab - Urine [id number] 07:30:00 Test Item Value Reference Range Comments Urine Mucus (test code = 8247-9) 2+ Lab - Urine Amorphous [id number] 07:30:00 Test Item Value Reference Range Comments Urine Amorphous Sediment (test code = 8246-1) Trace /HPF Lab - Neutrophils (%) (Auto)2015-12-30 07:30:00 Test Item Value Reference Range Comments Neutrophils (%) (Auto) (test code = 770-8) 67.8 % 42.2- 75.2 Lab - Neutrophils # (Auto)2015-12-30 07:30:00 Test Item Value Reference Range Comments Neutrophils # (Auto) (test code = 751-8) 4.1 K/mm3 1.8-8.0 Lab - Monocytes (%) (Auto)2015-12-30 07:30:00 Test Item Value Reference Range Comments Monocytes (%) (Auto) (test code = 5905-5) 6.7 % 1.7-9. 3 Lab - Monocytes # (Auto)2015-12-30 07:30:00 Test Item Value Reference Range Comments Monocytes # (Auto) (test code = 742-7) 0.4 K/mm3 0-0.9 Lab - Lymphocytes (%) (Auto)2015-12-30 07:30:00 Test Item Value Reference Range Comments Lymphocytes (%) (Auto) (test code = 736-9) 23.7 % 20.5- 51.1 Lab - Lymphocytes # (Auto)2015-12-30 07:30:00 Test Item Value Reference Range Comments Lymphocytes # (Auto) (test code = 731-0) 1.4 K/mm3 1.2-6.5 Lab - Eosinophils (%) (Auto)2015-12-30 07:30:00 Test Item Value Reference Range Comments Eosinophils (%) (Auto) (test code = 713-8) 1.1 % 0-10 Lab - Eosinophils # (Auto)2015-12-30 07:30:00 Test Item Value Reference Range Comments Eosinophils # (Auto) (test code = 711-2) 0.1 K/mm3 0-0.6 Lab - Basophils (%) (Auto)2015-12-30 07:30:00 Test Item Value Reference Range Comments Basophils (%) (Auto) (test code = 706-2) 0.7 % 0-3.0 Lab - Basophils # (Auto)2015-12-30 07:30:00 Test Item Value Reference Range Comments Basophils # (Auto) (test code = 704-7) 0.0 K/mm3 0.0-0.2 Vitamin B12 [id number] 07:30:00 Test Item Value Reference Range Comments Vitamin B-12 (test code = Vitamin B-12) 1370 pg/mL 180- 914 pg/mL Comprehensive Metabolic [id number] 07:30:00 Test Item Value Reference Range Comments CO2 (test code = CO2) 25 mmol/L 23- 33 mmol/L eGFR (test code = eGFR) >60 >60 BUN/Creatinine Ratio (test code = BUN/Creatinine 16 15-24 Ratio) Calcium (test code = Calcium) 9.1 mg/dL 8.7- 10.7 mg/dL Sodium (test code = Sodium) 137 mmol/L 135- 153 mmol/L Potassium (test code = Potassium) 3.9 mmol/L 3.5- 5.3 mmol/ L Chloride (test code = Chloride) 104 mmol/L 96- 112 mmol/L BUN (test code = BUN) 8 mg/dL 7- 22 mg/dL Globulin, Total (test code = Globulin, Total) 2.7 g/dL 2. 3- 3.5 g/dL Osmolality Calc (test code = Osmolality Calc) 272 26 6-308 Anion Gap (test code = Anion Gap) 8 mmol/L 5- 15 mmol/L Total Protein (test code = Total Protein) 6.8 g/dL 6.1- 8 .0 g/dL Albumin (test code = Albumin) 4.1 g/dL 3.5- 5.2 g/dL ALBUMIN/GLOBULIN RATIO (test code = 1.5 1.1-1.8 ALBUMIN/GLOBULIN RATIO) ALT (test code = ALT) 19 U/L 10- 35 U/L AST (test code = AST) 17 U/L 12- 45 U/L Alkaline Phosphatase (test code = Alkaline 37 U/L 37- 1 07 U/L Phosphatase) Creatinine (test code = Creatinine) 0.5 mg/dL 0.5- 1.2 mg/ dL Glucose (test code = Glucose) 93 mg/dL 70- 110 mg/dL Total Bilirubin (test code = Total Bilirubin) 0.73 mg/dL 0. 30- 1.20 mg/dL [id number] 07:30:00 Test Item Value Reference Range Comments Ferritin (test code = Ferritin) 78.6 ng/mL 11.0- 306.8 ng/m L Folate [id number] 07:30:00 Test Item Value Reference Range Comments Folate (test code = Folate) > 24.80 5.90- 24.80 ng/mL Lipid [id number] 07:30:00 Test Item Value Reference Range Comments HDL (test code = HDL) 50 mg/dL 35- 80 mg/dL Cholesterol (test code = Cholesterol) 142 mg/dL 140- 200 m g/dL VLDL Cholesterol Alissa (test code = VLDL 10.6 mg/dL 5- 40 mg/ dL Cholesterol Alissa) Triglycerides (test code = Triglycerides) 53 mg/dL 35- 16 0 mg/dL LDL Calculated (test code = LDL Calculated) 79 mg/dL 0- 1 29 mg/dL Thyroid Function [id number] 07:30:00 Test Item Value Reference Range Comments TSH (test code = TSH) 0.448 mIU/L 0.340- 5.600 mIU/L CBC w/ [id number] 07:30:00 Test Item Value Reference Range Comments RBC (test code = RBC) 4.16 M/mm3 3.00- 5.20 M/mm3 HCT (test code = HCT) 34.7 % 34.0- 46.0 % MCH (test code = MCH) 29.7 pg 25- 35 pg MPV (test code = MPV) 8.2 fL 6.0- 9.5 fL Neutrophils (Absolute) (test code = Neutrophils 4.1 K/mm3 1.8- 8.0 K/mm3 (Absolute)) Baso (Absolute) (test code = Baso (Absolute)) 0 K/mm3 0. 0- 0.2 K/mm3 WBC (test code = WBC) 6.1 K/mm3 4.5- 13.0 K/mm3 HGB (test code = HGB) 12.4 G/DL 11.5- 15.3 G/DL Lymphocytes % (test code = Lymphocytes %) 23.7 % 20.5- 51.1 % Eosinophils % (test code = Eosinophils %) 1.1 % 0- 10 % Basophils % (test code = Basophils %) 0.7 % 0- 3.0 % Eos (Absolute) (test code = Eos (Absolute)) 0.1 K/mm3 0- 0 .6 K/mm3 REPEAT AUTO DIFF (test code = REPEAT AUTO DIFF) YES MCV (test code = MCV) 83.3 fL 78- 100 fL MCHC (test code = MCHC) 35.7 g/dl 31- 36 g/dl Platelet (test code = Platelet) 191 K/mm3 150- 450 K/mm3 Neutrophils % (test code = Neutrophils %) 67.8 % 42.2- 75.2 % RDW (test code = RDW) 12.4 % 11.0- 15.0 % Monocytes % (test code = Monocytes %) 6.7 % 1.7- 9.3 % Lymphs (Absolute) (test code = Lymphs 1.4 K/mm3 1.2- 6.5 K /mm3 (Absolute)) Monocytes(Absolute) (test code = 0.4 K/mm3 0- 0.9 K/mm3 Monocytes(Absolute)) [id number] 07:30:00 Test Item Value Reference Range Comments Clarity, UA (test code = Clarity, UA) CLOUDY CLEAR Bilirubin, UA (test code = Bilirubin, UA) NEGATIVE NEGATI VE Urine Source (test code = Urine Source) CLEAN CATCH Color, UA (test code = Color, UA) DK YELLOW YELLOW Urobilinogen, UA (test code = Urobilinogen, UA) 0.2 E.U./DL 0.2- 1.0 E.U./DL Specific [place], Urine (test code = Specific 1.022 1. 005-1.030 [place], Urine) Glucose, UA (test code = Glucose, UA) NEGATIVE NEGATIVE M G/DL Ketones, UA (test code = Ketones, UA) TRACE NEGATIVE M G/DL Nitrite, UA (test code = Nitrite, UA) NEGATIVE NEGATIVE Leukocyte Esterase, UA (test code = Leukocyte NEGATIVE NE GATIVE Esterase, UA) pH, UA (test code = pH, UA) 7.5 5.0-8.0 Protein, Ur (test code = Protein, Ur) NEGATIVE NEGATIVE M G/DL Blood, UA (test code = Blood, UA) NEGATIVE NEGATIVE Urine [id number] 07:30:00 Test Item Value Reference Range Comments Bacteria, UA (test code = Bacteria, UA) 1+ TRACE BA C/HPF Renal Epithel, UA (test code = Renal Epithel, UA) 0-5 0- 5 #/HPF WBC, UA (test code = WBC, UA) RARE 0- 5 #/HPF Amorphous Crystal, UA (test code = Amorphous Crystal, TRACE TRACE /HPF UA) Mucus, UA (test code = Mucus, UA) 2+ TRACE Vitamin D 25 Hydroxy (25OH D2 + D3)2015-12-30 07:30:00 Test Item Value Reference Range Comments Vitamin D Total (25OH) (test code = Vitamin D Total 39 ng/mL 30- 100 ng/mL (25OH)) Lab - 25-Hydroxy Vitamin D [id number] 07:30:00 Test Item Value Reference Range Comments 25-Hydroxy Vitamin D Total 39 ng/mL Vitam in D Status 25-OH Vitamin (test code = 25-Hydroxy D: Defic iency: <20 ng/mL Vitamin D Total) Insufficiency: 20 - 29 ng/mL Optimal: > or = 30 ng/mL For 25-OH Vitamin D testing on patients on D2-s upplementation and patients for whom quantitation of D2 and D3 fractions is req uired, the QuestAssureD(TM) 25-OH VIT D, (D2,D3), LC/MS/M S is recommended: ord er code 96831 (patients >2yrs) . For more information on t his test, go to: http://education .Joincube.com.com/faq/OKE603 (This link is being provided f or informational/ed ucational purposes only.) THIS TEST WAS PERFORMED AT: [facility] [address] [place] [address] EDUIN MUIR MD Lab - Vitamin B12 [id number] 07:30:00 Test Item Value Reference Range Comments Vitamin B12 Level (test code = 2132-9) 1370 pg/mL 180-914 Lab - VLDL [id number] 07:30:00 Test Item Value Reference Range Comments VLDL Cholesterol (test code = VLDL Cholesterol) 10.6 mg/dL 5-40 Lab - Triglycerides [id number] 07:30:00 Test Item Value Reference Range Comments Triglycerides Level (test code = 2571-8) 53 mg/dL 35-160 Lab - Total [id number] 07:30:00 Test Item Value Reference Range Comments Total Protein (test code = 2885-2) 6.8 g/dL 6.1-8.0 Lab - Total [id number] 07:30:00 Test Item Value Reference Range Comments Total Bilirubin (test code = 0.73 mg/dL 0.30-1.20 Reji ples taken from patients 1976-05) who have taken N aproxen have shown spurious e levation in Total Bilirubin levels. A metabolite of Na proxen (O-Desmethylnapr oxen) has been shown to in terfere with the Nerissa bloom method for measuring To mitchell Bilirubin. Lab - Thyroid Stimulating Hormone (TSH)2015-12-30 07:30:00 Test Item Value Reference Range Comments Thyroid Stimulating Hormone (TSH) (test code = 0.448 mIU/L 0 .340-5.600 3016-3) Lab - Sodium [id number] 07:30:00 Test Item Value Reference Range Comments Sodium Level (test code = 2951-2) 137 mmol/L 135-153 Lab - Potassium [id number] 07:30:00 Test Item Value Reference Range Comments Potassium Level (test code = 2823-3) 3.9 mmol/L 3.5-5.3 Lab - LDL [id number] 07:30:00 Test Item Value Reference Range Comments LDL Cholesterol (test code = 79 mg/dL 0-129 --- ---CARDIAC RISK BASED ON 2088-04) LDL--- Normal to Low Risk <130 mg/dl Moder ate Risk 130-160 mg/dl Hi gh Risk >160 mg/dl ------ Lab - HDL Blqmrjtoqle2325-75-02 07:30:00 Test Item Value Reference Range Comments HDL Cholesterol (test code = 50 mg/dL 35-80 --- CARDIAC RISK 2084-12) BASED ON HDL---- MALE FEMALE Norm al to Low Risk >55 mg/dl & gt;65 mg/dl Moderate Risk 35 -55 mg/dl 45-65 mg/dl High Risk <35 mg/dl <45 mg/dl --------- Lab - Glucose [id number] 07:30:00 Test Item Value Reference Range Comments Glucose Level (test code = 2345-7) 93 mg/dL 70-110 Lab - [id number] 07:30:00 Test Item Value Reference Range Comments Globulin (test code = 67069-2) 2.7 g/dL 2.3-3.5 Lab - [id number] 07:30:00 Test Item Value Reference Range Comments Folate (test code = 2284-8) > 24.80 ng/mL 5.90-24.80 Lab - [id number] 07:30:00 Test Item Value Reference Range Comments Ferritin (test code = 2276-4) 78.6 ng/mL 11.0-306.8 Lab - Estimated GFR (MDRD)2015-12-30 07:30:00 Test Item Value Reference Range Comments Estimated GFR (MDRD) (test code > 60 60-100 eGFR by MDRD equation. Units = 37595-0) mL/min./1.73m sq . Less than 60 suggests signifi cant renal disease. Lab - [id number] 07:30:00 Test Item Value Reference Range Comments Creatinine (test code = 2160-0) 0.5 mg/dL 0.5-1.2 Lab - Cholesterol [id number] 07:30:00 Test Item Value Reference Range Comments Cholesterol Level (test code = 2093-3) 142 mg/dL 140-200 Lab - Chloride [id number] 07:30:00 Test Item Value Reference Range Comments Chloride Level (test code = 2075-0) 104 mmol/L 96-112 Lab - Carbon Dioxide [id number] 07:30:00 Test Item Value Reference Range Comments Carbon Dioxide Level (test code = 8-9) 25 mmol/L 23-33 Lab - Calculated Gfpwstbzse0884-02-43 07:30:00 Test Item Value Reference Range Comments Calculated Osmolality (test code = Calculated 272 26 6-308 Osmolality) Lab - Calcium [id number] 07:30:00 Test Item Value Reference Range Comments Calcium Level (test code = 83535-8) 9.1 mg/dL 8.7-10.7 Influenza A and B [id number] 10:50:00 Test Item Value Reference Range Comments FLU B (test code = FLU B) NEGATIVE NEGATIVE FLU A (test code = FLU A) NEGATIVE NEGATIVE Aerobic/Anaerobic [id number] 00:00:00Gram Stain Result Comment: GRAM STAIN-WOUNDFinal SMEAR RESULTS NO WBC'S OBSERVED NO ORGANISMS SEEN COMMENTS: Instructions SEBACEOUS CYST LEFT FLANK [facility] CONVERSION Anaerobic Culture Comment: WOUND CULTUREFinal NO GROWTH DAY 4; COMMENTS: Instructions SEBACEOUS CYST LEFT FLANK [facility] CONVERSIONVitamin B12 [id number] 09:37:00 Test Item Value Reference Range Comments Vitamin B-12 (test code = Vitamin B-12) 1185 pg/mL 180- 914 pg/mL Comprehensive Metabolic [id number] 09:37:00 Test Item Value Reference Range Comments CO2 (test code = CO2) 29 mmol/L 23- 33 mmol/L eGFR (test code = eGFR) >60 >60 BUN/Creatinine Ratio (test code = BUN/Creatinine 17 15-24 Ratio) Calcium (test code = Calcium) 9.2 mg/dL 8.7- 10.7 mg/dL Sodium (test code = Sodium) 139 mmol/L 135- 153 mmol/L Potassium (test code = Potassium) 4.0 mmol/L 3.5- 5.3 mmol/ L Chloride (test code = Chloride) 106 mmol/L 96- 112 mmol/L BUN (test code = BUN) 10 mg/dL 7- 22 mg/dL Globulin, Total (test code = Globulin, Total) 3.4 g/dL 2. 3- 3.5 g/dL Osmolality Calc (test code = Osmolality Calc) 276 26 6-308 Anion Gap (test code = Anion Gap) 4 mmol/L 5- 15 mmol/L Total Protein (test code = Total Protein) 7.1 g/dL 6.1- 8 .0 g/dL Albumin (test code = Albumin) 3.7 g/dL 3.5- 5.2 g/dL ALBUMIN/GLOBULIN RATIO (test code = 1.1 1.1-1.8 ALBUMIN/GLOBULIN RATIO) ALT (test code = ALT) 25 U/L 10- 35 U/L Creatinine (test code = Creatinine) 0.6 mg/dL 0.5- 1.2 mg/ dL Glucose (test code = Glucose) 86 mg/dL 70- 110 mg/dL Total Bilirubin (test code = Total Bilirubin) 0.42 mg/dL 0. 30- 1.20 mg/dL AST (test code = AST) 22 U/L 12- 45 U/L Alkaline Phosphatase (test code = Alkaline 51 U/L 37- 1 07 U/L Phosphatase) [id number] 09:37:00 Test Item Value Reference Range Comments Ferritin (test code = Ferritin) 57.9 ng/mL 11.0- 306.8 ng/m L Lipid [id number] 09:37:00 Test Item Value Reference Range Comments Triglycerides (test code = Triglycerides) 82 mg/dL 35- 16 0 mg/dL LDL Calculated (test code = LDL Calculated) 123 mg/dL 0- 1 29 mg/dL HDL (test code = HDL) 67 mg/dL 35- 80 mg/dL Cholesterol (test code = Cholesterol) 212 mg/dL 140- 200 m g/dL VLDL Cholesterol Alissa (test code = VLDL 16.4 mg/dL 5- 40 mg/ dL Cholesterol Alissa) [id number] 09:37:00 Test Item Value Reference Range Comments TSH (test code = TSH) 1.766 mIU/L 0.340- 5.600 mIU/L CBC w/ [id number] 09:37:00 Test Item Value Reference Range Comments RBC (test code = RBC) 4.29 M/mm3 3.00- 5.20 M/mm3 HCT (test code = HCT) 36.4 % 34.0- 46.0 % MCH (test code = MCH) 28.1 pg 25- 35 pg MPV (test code = MPV) 8.8 fL 6.0- 9.5 fL Neutrophils (Absolute) (test code = Neutrophils 2.2 K/mm3 1.8- 8.0 K/mm3 (Absolute)) Baso (Absolute) (test code = Baso (Absolute)) 0 K/mm3 0. 0- 0.2 K/mm3 WBC (test code = WBC) 4.4 K/mm3 4.5- 13.0 K/mm3 HGB (test code = HGB) 12.1 G/DL 11.5- 15.3 G/DL Lymphocytes % (test code = Lymphocytes %) 37.3 % 20.5- 51.1 % Eosinophils % (test code = Eosinophils %) 4.0 % 0- 10 % Basophils % (test code = Basophils %) 1.1 % 0- 3.0 % Eos (Absolute) (test code = Eos (Absolute)) 0.2 K/mm3 0- 0 .6 K/mm3 REPEAT AUTO DIFF (test code = REPEAT AUTO DIFF) YES MCV (test code = MCV) 84.9 fL 78- 100 fL MCHC (test code = MCHC) 33.1 g/dl 31- 36 g/dl Platelet (test code = Platelet) 193 K/mm3 150- 450 K/mm3 Neutrophils % (test code = Neutrophils %) 50.6 % 42.2- 75.2 % RDW (test code = RDW) 13.1 % 11.0- 15.0 % Monocytes % (test code = Monocytes %) 7.0 % 1.7- 9.3 % Lymphs (Absolute) (test code = Lymphs 1.6 K/mm3 1.2- 6.5 K /mm3 (Absolute)) Monocytes(Absolute) (test code = 0.3 K/mm3 0- 0.9 K/mm3 Monocytes(Absolute)) [id number] 09:37:00 Test Item Value Reference Range Comments Urine Source (test code = Urine Source) CLEAN CATCH Color, UA (test code = Color, UA) YELLOW YELLOW Urobilinogen, UA (test code = Urobilinogen, UA) 0.2 E.U./DL 0.2- 1.0 E.U./DL pH, UA (test code = pH, UA) 5.5 5.0-8.0 Protein, Ur (test code = Protein, Ur) NEGATIVE NEGATIVE M G/DL Blood, UA (test code = Blood, UA) NEGATIVE NEGATIVE Specific [place], Urine (test code = Specific 1.023 1. 005-1.030 [place], Urine) Glucose, UA (test code = Glucose, UA) NEGATIVE NEGATIVE M G/DL Ketones, UA (test code = Ketones, UA) TRACE NEGATIVE M G/DL Nitrite, UA (test code = Nitrite, UA) NEGATIVE NEGATIVE Leukocyte Esterase, UA (test code = Leukocyte TRACE NE GATIVE Esterase, UA) Clarity, UA (test code = Clarity, UA) CLEAR CLEAR Bilirubin, UA (test code = Bilirubin, UA) NEGATIVE NEGATI VE Urine [id number] 09:37:00 Test Item Value Reference Range Comments Renal Epithel, UA (test code = Renal Epithel, UA) 0-5 0- 5 #/HPF WBC, UA (test code = WBC, UA) RARE 0- 5 #/HPF Mucus, UA (test code = Mucus, UA) TRACE TRACE Vitamin D 25 Hydroxy (25OH D2 + D3)2014-11-24 09:37:00 Test Item Value Reference Range Comments Vitamin D Total (25OH) (test code = Vitamin D Total 45 ng/mL 30- 100 ng/mL (25OH)) [id number] 04:23:00 Test Item Value Reference Range Comments WBC (test code = WBC) 6.3 K/mm3 4.5- 13.0 K/mm3 HGB (test code = HGB) 9.1 G/DL 11.5- 15.3 G/DL RBC (test code = RBC) 3.11 M/mm3 3.00- 5.20 M/mm3 HCT (test code = HCT) 27.1 % 34.0- 46.0 % MCH (test code = MCH) 29.3 pg 25- 35 pg MPV (test code = MPV) 10.7 fL 6.0- 9.5 fL MCV (test code = MCV) 87.3 fL 78- 100 fL MCHC (test code = MCHC) 33.6 g/dl 31- 36 g/dl Platelet (test code = Platelet) 97 K/mm3 150- 450 K/mm3 RDW (test code = RDW) 13.0 % 11.0- 15.0 % MATURATION [id number] 04:23:00 Test Item Value Reference Range Comments MATURATION TIME HCT 20-29 (test code = MATURATION TIME 2 HCT 20-29) Type and [id number] 05:28:00 Test Item Value Reference Range Comments SPECIMEN EXPIRATION DATE (test 10/23/14 AT 0528 code = SPECIMEN EXPIRATION DATE) Previous history: (test code = YES Previous history:) Anti-AB (test code = Anti-AB) 4+ Anti-D (test code = Anti-D) 4+ A1 Cell (test code = A1 Cell) 0 Antibody Screen (test code = NEGATIVE SCREENING CELLS I Antibody Screen) AHG 0 SCREENING CELLS II AHG 0 Anti-B (test code = Anti-B) 0 Anti-A (test code = Anti-A) 4+ ANTI-D2 (test code = ANTI-D2) 4+ B CELL (test code = B CELL) 4+ Blood Type (test code = Blood AP Type) Type and [id number] 12:30:00 Test Item Value Reference Range Comments Previous history: (test code = YES Previous history:) SPECIMEN EXPIRATION DATE (test 03/27/14 AT 1230 code = SPECIMEN EXPIRATION DATE) Anti-B (test code = Anti-B) 0 Anti-A (test code = Anti-A) 4+ ANTI-D2 (test code = ANTI-D2) 4+ B CELL (test code = B CELL) 3+ Blood Type (test code = Blood AP Type) Anti-AB (test code = Anti-AB) 4+ Anti-D (test code = Anti-D) 4+ A1 Cell (test code = A1 Cell) 0 Antibody Screen (test code = NEGATIVE SCREENING CELLS I Antibody Screen) AHG 0 SCREENING CELLS II AHG 0 Assessments Condition Name Status Diagnosis Date Treating Clinici an Encounter for general adult medical exam w Active abnormal findings Essential (primary) hypertension Active Gastro-esophageal reflux disease without Active esophagitis Encntr screen mammogram for malignant Active neoplasm of breast Encounters Start End Encounter Admission Attending Care Care Encounter Date/Time Date/Time Type Type Clinicians Facility Department ID 2020-03-21 2020-03-21 [id number] 15:30:00 15:30:00 Stormy Children [id number] s [id number] and [facility], 2019-04-13 2019-04-13 Outpatient [facility] [id number]_ 10:07:49 23:59:00 [id number] 2019-04-13 2019-04-13 Outpatient [facility] [id number] 10:07:49 10:22:49 2019-04-13 2019-04-13 Outpatient EL [facility] [id number]_ 00:00:00 00:00:00 [id number] 2019-03-23 2019-03-23 Outpatient EL [facility]ENDERGRAFT [id number]_ 11:45:30 23:59:00 ELMA [id number] 2019-03-23 2019-03-23 Outpatient [facility] [id number] 11:45:00 23:59:00 2019-03-23 2019-03-23 Outpatient EL [facility] [id number]_ 00:00:00 00:00:00 [id number] 2018-05-29 2018-05-29 Outpatient [facility] [id number]_ 00:00:00 00:00:00 [id number] 2018-05-29 Outpatient EL [facility] [id number] 00:00:00 00:00:00 [id number] 2018-05-12 2018-05-12 S JENNIFER MAYO, [facility] [id number] _ 06:05:00 11:46:00 HILARY [id number] 2018-05-12 2018-05-12 Outpatient [facility] [id number] 06:05:00 11:46:00 2018-05-12 2018-05-12 [facility] MAYO [facility] [id number] _ 11:33:00 11:33:00 HILARY [id number] 2018-05-12 2018-05-12 S JENNIFER MAYO, [facility] [id number] _ 07:55:00 07:55:00 HILARY [id number] 2018-05-12 2018-05-12 S [facility] [id number] _ 00:00:00 00:00:00 [id number] 2018-05-09 S [facility] [id number] _ 00:00:00 00:00:00 [id number] 2018-05-08 Outpatient EL [facility] [id number]_ 15:16:48 15:38:53 [id number] 2018-05-08 2018-05-08 Outpatient [facility] [id number] 15:16:48 15:38:53 2018-05-08 2018-05-08 Outpatient EL [facility] [id number]_ 00:00:00 00:00:00 [id number] 2018-05-08 Outpatient [facility] [id number] 00:00:00 00:00:00 2018-05-06 2018-05-07 Emergency ER JONNA, [facility] [id number]_ 20:39:14 00:21:00 ANA MARIA [id number] 2018-05-06 2018-05-07 Emergency [facility] [id number] 20:39:14 00:21:00 2018-05-07 2018-05-07 Outpatient [facility] [id number] 00:00:00 00:00:00 2018-05-06 2018-05-06 Emergency [facility] [id number]_ 23:21:10 23:21:10 [id number] 2018-05-06 2018-05-06 Emergency [facility] [id number] 63_ 22:50:40 22:50:40 [id number] 2018-05-06 2018-05-06 Emergency ER [facility] [id number]_ 20:09:00 20:09:00 [id number] 2018-03-17 2018-03-17 Outpatient EL [facility] [id number]_ 06:39:43 23:59:00 [id number] 2018-03-17 2018-03-17 Outpatient [facility] [id number] 06:39:43 07:00:00 2018-02-26 2018-02-26 Outpatient EL [facility] [id number]_ 00:00:00 00:00:00 [id number] 2018-02-26 Outpatient EL [facility] [id number]_ 00:00:00 00:00:00 [id number] 2018-02-13 Outpatient [facility] [id number] 00:00:00 00:00:00 2017-11-28 2017-11-28 Outpatient [facility] [id number] 00:00:00 00:00:00 2017-11-20 2017-11-20 Outpatient [facility] [id number] 00:00:00 00:00:00 2017-03-01 2017-03-01 Outpatient UR CaseylilyleslieSTEPHANIE corona STEPHANIE [id number] 07:09:00 07:09:00 Janusz 2017-03-01 2017-03-01 Outpatient [facility] [id number] 00:00:00 00:00:00 2017-02-27 2017-02-27 Outpatient EL [facility] [id number]_ 14:47:10 15:18:10 [id number] 2017-02-27 2017-02-27 Outpatient EL [facility] [id number]_ 00:00:00 00:00:00 [id number] 2017-01-21 Outpatient EL [facility] [id number]_ 00:00:00 23:59:00 [id number] 2017-01-21 Outpatient EL [facility] [id number]_ 00:00:00 00:00:00 [id number] 2016-08-08 Outpatient UR Jeremy Rahman W03 [id number] 05:06:00 10:35:00 2016-08-08 2016-08-08 Outpatient [facility] [id number] 00:00:00 00:00:00 2016-08-07 2016-08-07 Outpatient [facility] [id number] 00:00:00 00:00:00 2016-08-06 2016-08-06 Outpatient [facility] [id number] 00:00:00 00:00:00 2016-08-06 2016-08-06 Outpatient [facility] [id number] 00:00:00 00:00:00 2016-08-06 2016-08-06 Outpatient [facility] [id number] 00:00:00 00:00:00 2016-07-18 2016-07-18 Outpatient UR Elgin Camargo [id number] [id number] 10:54:00 13:54:00 2016-07-18 2016-07-18 Outpatient [facility] [id number] 00:00:00 00:00:00 2016-07-18 2016-07-18 Outpatient [facility] [id number] 00:00:00 00:00:00 2016-05-24 2016-05-24 Outpatient UR STEPHANIE Matthews [id number] 14:54:00 14:54:00 [place] 2016-05-24 2016-05-24 Outpatient [facility] [id number] 00:00:00 00:00:00 2016-01-04 2016-01-04 Outpatient UR Luca BROWN [id number] 07:24:00 07:24:00 (ANP)Mary 2016-01-04 2016-01-04 Outpatient [facility] [id number] 00:00:00 00:00:00 2015-12-30 2015-12-30 Outpatient UR STEPHANIE Donaldson [id number] 07:25:00 07:25:00 Janusz 2015-12-30 2015-12-30 Outpatient [facility] [id number] 00:00:00 00:00:00 2015-03-24 2015-03-24 Outpatient [facility] [id number] 00:00:00 00:00:00 2015-01-24 2015-01-24 Outpatient [facility] [id number] 00:00:00 00:00:00 2015-01-24 2015-01-24 Outpatient [facility] [id number] 00:00:00 00:00:00 2014-11-24 2014-11-24 Outpatient [facility] [id number] 00:00:00 00:00:00 2014-10-21 2014-10-21 Outpatient [facility] [id number] 00:00:00 00:00:00 2014-10-20 2014-10-20 Outpatient [facility] [id number] 00:00:00 00:00:00 2014-03-24 2014-03-24 Outpatient [facility] [id number] 00:00:00 00:00:00 2012-04-28 2012-04-28 Outpatient [facility] [id number] 00:00:00 00:00:00 Payers Payer Name Policy Type Policy Number Effective Date Expiration D ate [facility] [id number] 2008 00:00:0 0 HOSP Plan of Treatment Planned Activity Planned Date Details Comments Future Scheduled Test [code = ] Future Scheduled Test [code = ] Future Scheduled Test [code = ] Future Scheduled Test [code = ] Future Scheduled Test [code = ] Future Scheduled Test [code = ] Future Scheduled Test [code = ] Future Scheduled Test [code = ] Future Scheduled Test [code = ] Future Scheduled Test [code = ] Future Scheduled Test [code = ] Future Scheduled Test [code = ] Future Scheduled Test [code = ] Future Scheduled Test [code = ] Future Scheduled Test [code = ] Future Scheduled Test [code = ] Future Scheduled Test [code = ] Future Scheduled Test [code = ] Future Scheduled Test [code = ] Future Scheduled Test [code = ] Future Scheduled Test [code = ] Future Scheduled Test [code = ] Future Scheduled Test [code = ] Future Scheduled Test [code = ] Future Scheduled Test [code = ] Social History Social Habit Start Date Stop Date Comments ASSERTION Tobacco smoking status NHIS 2019-03-23 00:00:00 2019-03-23 00:00 :00 Cigarettes smoked current (pack per 2019-03-23 00:00:00 00:00:00 day) - Reported Cigarette pack-years 2019-03-23 00:00:00 2019-03-23 00:00:00 Alcohol intake 2019-03-23 00:00:00 2019-03-23 00:00:00 Smoking Status Start Date Stop Date Ex-smoker (finding) Vital Signs Vital Name Observation Time Observation Value Comments SYSTOLIC BLOOD PRESSURE 2018-05-12 11:36:00 143 mm[Hg] DIASTOLIC BLOOD PRESSURE 2018-05-12 11:36:00 81 mm[Hg] HEART RATE 2018-05-12 11:36:00 61 /min BODY TEMPERATURE 2018-05-12 11:36:00 36.17 Breanna RESPIRATORY RATE 2018-05-12 11:36:00 17 /min OXYGEN SATURATION 2018-05-12 11:36:00 100 % HEIGHT 2018-05-12 06:50:00 172.7 cm WEIGHT 2018-05-12 06:50:00 92.7 kg SYSTOLIC BLOOD PRESSURE 2018-05-08 15:18:00 144 mm[Hg] DIASTOLIC BLOOD PRESSURE 2018-05-08 15:18:00 109 mm[Hg] HEART RATE 2018-05-08 15:18:00 65 /min HEIGHT 2018-05-08 15:18:00 172.7 cm WEIGHT 2018-05-08 15:18:00 92.08 kg SYSTOLIC BLOOD PRESSURE 2018-05-07 00:21:00 167 mm[Hg] DIASTOLIC BLOOD PRESSURE 2018-05-07 00:21:00 100 mm[Hg] HEART RATE 2018-05-07 00:21:00 62 /min RESPIRATORY RATE 2018-05-07 00:21:00 18 /min OXYGEN SATURATION 2018-05-07 00:21:00 100 % BODY TEMPERATURE 2018-05-06 20:28:00 36 Breanna HEIGHT 2018-05-06 20:28:00 172.7 cm WEIGHT 2018-05-06 20:28:00 93.441 kg Body Temperature 2016-08-08 08:00:00 96.4 [degF] Heart Rate 2016-08-08 08:00:00 74 /min Respiratory Rate 2016-08-08 08:00:00 18 /min SYSTOLIC BLOOD PRESSURE 2016-08-08 08:00:00 143 mm[Hg] DIASTOLIC BLOOD PRESSURE 2016-08-08 08:00:00 88 mm[Hg] O2 % BldC Oximetry 2016-08-08 04:18:00 99 % Weight Measured 2016-08-06 05:14:00 220 BMI (Body Mass Index) 2016-08-06 05:14:00 33.4 kg/m2 HEIGHT 2016-08-06 05:14:00 172.7 cm WEIGHT 2016-08-06 05:14:00 99.79 kg HEIGHT 2016-07-18 11:32:00 172.7 cm WEIGHT 2016-07-18 11:32:00 99.79 kg SYSTOLIC BLOOD PRESSURE 2015-01-24 15:05:00 158 mm[Hg] DIASTOLIC BLOOD PRESSURE 2015-01-24 15:05:00 96 mm[Hg] HEIGHT 2015-01-24 13:30:00 172.7 cm WEIGHT 2015-01-24 13:30:00 87.2 kg SYSTOLIC BLOOD PRESSURE 2014-10-22 08:00:00 140 mm[Hg] DIASTOLIC BLOOD PRESSURE 2014-10-22 08:00:00 80 mm[Hg] HEIGHT 2014-10-20 05:38:00 172.7 cm WEIGHT 2014-10-20 05:38:00 99.79 kg HEIGHT 2012-04-28 06:16:00 172.7 cm WEIGHT 2012-04-28 06:16:00 91.8 kg
== END ==
LOC: EMPHEALTH 06:43
PROVIDERS: ATTEND Internal Medicine
DX: Z23 Encounter for immunization (principal)
CPT/HCPCS: 91300